=== PATIENT | male | born 1965 | race Caucasian/White ===

== ENCOUNTER 2016-10-16 21:42 | Emergency (ER) | payer BC, OTHER ==
[~2016-10-16] VITALS: Ht 177.8 cm; Wt 110.7 kg
[~2016-10-16 21:42] MED LIST: ATOR-26 PO; FLUT0.15 NAE; LISI-461 PO; PRT/20 PO
[2016-10-16 21:52] VITALS: Ht 177.8 cm; Wt 110.7 kg
[2016-10-16] MEDS ORDERED: ACETAMINOPHEN 500 MG TAB PO STA (22:12)
[2016-10-16] MEDS ORDERED: ONDANSETRON 4MG OD TAB PO ONE (22:15)
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
[2016-10-16 23:12] VITALS: BP 155/90; PULSE 80; TEMP 36.9; O2SAT 97
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
== END 2016-10-16 23:14 | disposition home or self-care (01) ==
LOC: C.EDB 21:43 → C.EDC 23:14
DX: S06.0X0A Concussion without loss of consciousness, initial encounter (principal); S40.012A Contusion of left shoulder, initial encounter; S00.03XA Contusion of scalp, initial encounter; V43.52XA Car driver injured in collision with other type car in traffic accident, initial encounter; Y92.488 Other paved roadways as the place of occurrence of the external cause; E78.00 Pure hypercholesterolemia, unspecified; I10 Essential (primary) hypertension; Z82.49 Family history of ischemic heart disease and other diseases of the circulatory system; Z87.891 Personal history of nicotine dependence; Z79.899 Other long term (current) drug therapy